=== PATIENT | male | born 1950 | race American Indian/Alaskan Native ===

== ENCOUNTER 2016-07-19 00:01 | Emergency (ER) | payer OTHER ==
--- NOTE | 2016-07-19 00:56 | Emergency Department Report ---
HPI - General Chief Complaint: Allergic Reaction Time Seen by Provider: 07/19/16 00:52 - HPI HPI: 65 year old male with a past medical history hypertension, gout, and arthritis presents to the hospital complains of tongue swelling started at 8 PM. Symptoms have been progressively worsening. Patient denies any shortness of breath or difficulty breathing. No aggravating or alleviating factors reported. Patient takes lisinopril for hypertension. In Addition to lisinopril patient thinks he takes nifedipine and atenolol cannot recall doses ED Past Medical Hx - Past Medical History Previous Medical History?: No - Surgical History Past Surgical History?: No - Social History Smoking Status: Never Smoker Substance Use Type: None - Medications Home Medications: Home Medications Medication Instructions Recorded Confirmed Last Taken Type Famotidine [Pepcid] 20 mg PO BID #10 tablet 07/19/16 Unknown Rx Prednisone [predniSONE 10 mg 10 mg PO .TAPER #1 tab.ds.pk 07/19/16 Unknown Rx (6-Day Pack, 21 Tabs)] amLODIPine [Norvasc] 5 mg PO DAILY #30 tab 07/19/16 Unknown Rx diphenhydrAMINE [Benadryl CAP] 25 mg PO Q6HR PRN #20 capsule 07/19/16 Unknown Rx ED Review of Systems ROS: Stated complaint: POSS ALLERGIC REACTION Other details as noted in HPI Comment: All other systems reviewed and negative Other: Constitutional: No fevers chills Eyes: No eye pain visual changes ENT: Tongue swelling Neck: Denies pain Respiratory: Denies cough wheezing shortness of breath Cardiovascular: Denies chest pain, palpitations, syncope GI: Denies abdominal pain, nausea, vomiting, diarrhea : Denies dysuria Musculoskeletal: Denies back pain, joint swelling Skin: Denies rash, lesions, erythema Neurologic: Denies headache, numbness, weakness Psychiatric: Denies suicidal ideation, hallucinations Physical Exam - Physical Exam Vital Signs: Vital Signs 07/19/16 00:31 Temperature 98.6 F Pulse Rate 67 Respiratory 20 Rate Blood Pressure 154/97 O2 Sat by Pulse 100 Oximetry Physical Exam: General: No limitations, patient is alert in no acute distress Head exam: Atraumatic, normocephalic Eyes exam: Normal appearance, pupils equal reactive to light, extraocular movements intact ENT: Moist mucous membrane, positive generalized tongue swelling but able to visualize the posterior pharynx. No posterior pharynx edema, stridor, or drooling. Neck exam: Normal inspection, full range of motion, no meningismus nontender Respiratory exam: Clear to auscultation bilateral, no wheezes, rales, crackles Cardiovascular: Normal rate and rhythm, normal heart sounds Abdomen: Soft, nondistended, and nontender, with normal bowel sounds, no rebound, or guarding Extremity: Full range of motion normal inspection no deformity Back: Normal Inspection, full range of motion, no tenderness Neurologic: Alert, oriented x3, cranial nerves intact, no motor or sensory deficit Psychiatric: normal affect, normal mood Skin: Warm, dry, intact ED Course Vital Signs 07/19/16 00:31 Temperature 98.6 F Pulse Rate 67 Respiratory 20 Rate Blood Pressure 154/97 O2 Sat by Pulse 100 Oximetry - Reevaluation(s) Reevaluation #1: 07/19/16 02:18 Patient received Benadryl, Pepcid, and Solu-Medrol in the ED 07/19/16 02:18 ED Medical Decision Making - Lab Data Result diagrams: 07/19/16 01:12 07/19/16 01:12 Lab Results 07/19/16 07/19/16 Range/Units 01:12 01:12 WBC 9.7 (4.5-11.0) K/mm3 RBC 4.99 (3.65-5.03) M/mm3 Hgb 13.9 (11.8-15.2) gm/dl Hct 43.2 (35.5-45.6) % MCV 87 (84-94) fl MCH 28 (28-32) pg MCHC 32 (32-34) % RDW 16.0 H (13.2-15.2) % Plt Count 213 (140-440) K/mm3 Sodium 142 (137-145) mmol/L Potassium 4.0 (3.6-5.0) mmol/L Chloride 101.9 (98-107) mmol/L Carbon Dioxide 23 (22-30) mmol/L Anion Gap 21 mmol/L BUN 19 (9-20) mg/dL Creatinine 1.3 (0.8-1.5) mg/dL Estimated GFR > 60 ml/min BUN/Creatinine Ratio 14.61 % Glucose 104 H (75-100) mg/dL Calcium 9.1 (8.4-10.2) mg/dL - Medical Decision Making Pt reports improvement in symptoms during ED stay. Will be discharged on Norvasc for hypertension and instructed to discontinue lisinopril - Differential Diagnosis allergic reaction, angioedema Critical Care Time: No Critical care attestation.: If time is entered above; I have spent that time in minutes in the direct care of this critically ill patient, excluding procedure time. ED Disposition Clinical Impression: Angioedema, Adverse reaction to DARIEL inhibitor drug, HTN (hypertension) Disposition: DISCHARGED TO HOME OR SELFCARE Is pt being admited?: No Does the pt Need Aspirin: No Condition: Stable Instructions: Hypertension (ED), Angioedema (ED) Additional Instructions: Please stop the lisinopril. Please report this as allergy in the future and tell your caretakers that it causes your tongue to swell. I have written for Norvasc 5 mg to take in addition to other blood pressure medication. Follow-up with your primary care doctor for further evaluation and medication adjustment. Prescriptions: amLODIPine [Norvasc] 5 mg PO DAILY #30 tab diphenhydrAMINE [Benadryl CAP] 25 mg PO Q6HR PRN #20 capsule PRN Reason: Allergic Reaction Famotidine [Pepcid] 20 mg PO BID #10 tablet Prednisone [predniSONE 10 mg (6-Day Pack, 21 Tabs)] 10 mg PO .TAPER #1 tab.ds.pk Referrals: PRIMARY CARE, [Primary Care Provider] - 2-3 Days Time of Disposition: 03:54
[2016-07-19] MEDS ORDERED: BENADRYL IV ONE (01:01)
[2016-07-19] MEDS ORDERED: PEPCID IV ONE (01:01)
[2016-07-19 01:40] LABS: Hematocrit 43.2 % (35.5-45.6); Hemoglobin 13.9 gm/dl (11.8-15.2); Mean Corpuscular HGB Conc 32 % (32-34); Mean Corpuscular Hemoglobin 28 pg (28-32); Mean Corpuscular Volume 87 fl (84-94); Platelet Count 213 K/mm3 (140-440); Red Blood Count 4.99 M/mm3 (3.65-5.03); White Blood Count 9.7 K/mm3 (4.5-11.0)
[2016-07-19 02:59] LABS: Anion Gap 21 mmol/L; BUN/Creatinine Ratio 14.61; Blood Urea Nitrogen 19 mg/dL (9-20); Calcium 9.1 mg/dL (8.4-10.2); Carbon Dioxide 23 mmol/L (22-30); Chloride 101.9 mmol/L (98-107); Glucose 104 mg/dL (75-100); Sodium 142 mmol/L (137-145)
[2016-07-19 04:34] VITALS: BP 158/98
== END 2016-07-19 04:10 | disposition home or self-care (01) ==
LOC: ED 00:01
DX: T46.4X5A Adverse effect of angiotensin-converting-enzyme inhibitors, initial encounter (principal); T78.3XXA Angioneurotic edema, initial encounter; I10 Essential (primary) hypertension; Y92.89 Other specified places as the place of occurrence of the external cause
CPT/HCPCS: 36415; 80048; 85027; 96374; 96375; 99283; J1200; J2930